=== PATIENT | female | born 1990 | race Hispanic/Latino ===

== ENCOUNTER 2025-01-11 14:12 | Emergency (ER) | payer SELFPAY ==
[~2025-01-11] VITALS: Ht 157.5 cm; Wt 72.3 kg
[2025-01-11 14:40] VITALS: PULSE 83; RESP 16; TEMP 97.9; O2SAT 98
[2025-01-11] MEDS ORDERED: AZITHROMYCIN 250 MG TAB ONE (15:35)
[2025-01-11] MEDS: IBUPROFEN 600 MG TAB PO STA (15:36)
[2025-01-11] MEDS: AZITHROMYCIN 250 MG TAB PO SCH (15:36)
[2025-01-11] MEDS ORDERED: AZITHROMYCIN250 MG PO (16:23)
== END 2025-01-11 16:33 | disposition home or self-care (01) ==
LOC: FSED 14:52
DX: R51.9 Headache, unspecified (principal); J02.0 Streptococcal pharyngitis; R11.2 Nausea with vomiting, unspecified; R19.7 Diarrhea, unspecified; Z11.52 Encounter for screening for COVID-19
CPT/HCPCS: 0223U; 83518; 87400; 99284